=== PATIENT | male | born 1945 | race Caucasian/White ===

== ENCOUNTER 2021-06-01 10:20 | Outpatient (REF) | payer MEDICARE, SELFPAY ==
--- NOTE | ~2021-06-01 | XR_ITS ---
EXAMINATION: XR CHEST CLINICAL INFORMATION: Cough COMPARISON: Previous chest x-ray September 2017 TECHNIQUE: 2 views of the chest were obtained. FINDINGS: The cardiac and mediastinal contours are normal. There are several clustered small dense nodules in the right upper lobe probably representing small calcified granulomas that appear stable. The lungs are otherwise there is no pleural effusion or pneumothorax. There is a severe thoracolumbar scoliosis. There are degenerative changes of the spine. There is an old right proximal humerus fracture. XR/XR chest 2V IMPRESSION: No evidence for acute disease in the chest.
[2021-06-01 11:05] LABS: MANUAL DIFF FLAG NO
[2021-06-01 11:13] LABS: Basophils Absolute Auto 0.1 X10*3/uL (0.0-0.2); Basophils Percent Auto 0.7 % (0-2); Eosinophils Absolute Auto 0.5 X10*3/uL (0.0-0.4); Eosinophils Percent Auto 5.4 % (0-4); Hemoglobin 16.2 g/dl (14.0-18.0); Imm Gran Abs Auto 0.05 X10*3/uL (0.00-0.03); Imm Gran Pct Auto 0.6 % (0.0-0.4); Lymphocytes Absolute Auto 1.3 X10*3/uL (1.2-4.9); Lymphocytes Percent Auto 15.5 % (20-40); Mean Corpuscular HGB Conc 33.8 g/dl (31.0-36.0); Mean Corpuscular Hemoglobin 30.4 pg (27.0-33.0); Mean Corpuscular Volume 90.1 fL (80-98); Mean Platelet Volume 9.2 fL (9.4-12.4); Monocytes Absolute Auto 1.2 X10*3/uL (0.1-1.2); Monocytes Percent Auto 14.4 % (2-11); Neutrophils Absolute Auto 5.4 X10*3/uL (2.0-8.3); Neutrophils Percent Auto 63.4 % (45-73); Platelet Count 205 X10*3/uL (160-400); Red Blood Count 5.33 X10*6/uL (4.60-5.80); Red Cell Distribution Width 13.1 % (11.0-16.0); White Blood Count 8.5 X10*3/uL (4.8-10.8)
[2021-06-01 11:40] LABS: Anion Gap 13 (12-20); Blood Urea Nitrogen 15 mg/dL (9-16); Calcium 9.7 mg/dL (8.4-10.2); Carbon Dioxide 30 mmol/L (22-29); Chloride 101 mmol/L (96-108); Estimated Glomerular Filt Rate 53; Glucose Random 85 mg/dL (60-115); Potassium 3.8 mmol/L (3.3-5.1); Sodium 140 mmol/L (135-145)
== END 2021-06-01 10:21 | disposition home or self-care (01) ==
LOC: HO.LAB 10:20
PROVIDERS: PCP Internal Medicine; Visit Provider Internal Medicine
DX: Z00.00 Encounter for general adult medical examination without abnormal findings (principal); Z20.822 Contact with and (suspected) exposure to COVID-19; R09.89 Other specified symptoms and signs involving the circulatory and respiratory systems; R51.9 Headache, unspecified; R05 Cough
CPT/HCPCS: 71046; 80048; 85025; U0003; U0005

== ENCOUNTER 2021-12-31 09:37 | Outpatient (REF) | payer MEDICARE, SELFPAY ==
[2021-12-31 10:42] LABS: Anion Gap 10 (12-20); Blood Urea Nitrogen 18 mg/dL (9-16); Calcium 10.1 mg/dL (8.4-10.2); Carbon Dioxide 35 mmol/L (22-29); Chloride 101 mmol/L (96-108); Estimated Glomerular Filt Rate 59; Glucose Random 85 mg/dL (60-115); Potassium 4.2 mmol/L (3.3-5.1); Sodium 142 mmol/L (135-145)
== END 2021-12-31 09:38 | disposition home or self-care (01) ==
LOC: HO.LAB 09:37
PROVIDERS: PCP Internal Medicine; Visit Provider Urology
DX: R31.21 Asymptomatic microscopic hematuria (principal)
CPT/HCPCS: 36415; 80048

== ENCOUNTER 2022-03-18 10:27 | Outpatient (REF) | payer MEDICARE, SELFPAY ==
--- NOTE | ~2022-03-18 | XR_ITS ---
EXAMINATION: XR LUMBOSACRAL SPINE CLINICAL INFORMATION: Low back pain COMPARISON: Previous x-ray most recent November 2013 TECHNIQUE: Three views of the lumbosacral spine. FINDINGS: There is curvature of the lumbar spine to the right. Bone alignment is otherwise normal. No fracture or dislocation is seen. Disc spaces are normal. There is spondylosis at L1-L2 and L3-L4. There is multilevel facet arthritis. There is evidence of atherosclerotic disease. XR/XR lumbar spine 2-3V IMPRESSION: Scoliosis and degenerative changes.
== END 2022-03-18 10:28 | disposition home or self-care (01) ==
LOC: HO.XRAY 10:27
PROVIDERS: PCP Internal Medicine; Visit Provider Family Medicine
DX: M54.50 Low back pain, unspecified (principal)
CPT/HCPCS: 72100

== ENCOUNTER 2022-07-24 07:46 | Outpatient (REF) | payer MEDICARE, SELFPAY ==
[2022-07-24 07:59] LABS: MANUAL DIFF FLAG NO
[2022-07-24 08:27] LABS: Basophils Percent Auto 0.5 % (0-2); Eosinophils Absolute Auto 0.6 X10*3/uL (0.0-0.4); Eosinophils Percent Auto 7.1 % (0-4); Hematocrit 45.6 % (42.0-52.0); Hemoglobin 15.5 g/dl (14.0-18.0); Imm Gran Abs Auto 0.05 X10*3/uL (0.00-0.03); Imm Gran Pct Auto 0.6 % (0.0-0.4); Lymphocytes Absolute Auto 1.4 X10*3/uL (1.2-4.9); Lymphocytes Percent Auto 17.4 % (20-40); Mean Corpuscular Hemoglobin 30.5 pg (27.0-33.0); Mean Corpuscular Volume 89.6 fL (80.0-98.0); Mean Platelet Volume 9.2 fL (9.4-12.4); Monocytes Absolute Auto 0.9 X10*3/uL (0.1-1.2); Monocytes Percent Auto 12.1 % (2-11); Neutrophils Absolute Auto 4.8 x10*3/uL (2.0-8.3); Neutrophils Percent Auto 62.3 % (45-73); Platelet Count 228 X10*3/uL (160-400); Red Blood Count 5.09 X10*6/uL (4.60-5.80); Red Cell Distribution Width 13.1 % (11.0-16.0); White Blood Count 7.8 X10*3/uL (4.8-10.8)
[2022-07-24 09:11] LABS: Alanine Aminotransferase 32 U/L (0-40); Albumin Level 4.4 g/dL (3.5-5.0); Alkaline Phosphatase 97 U/L (39-117); Anion Gap 13 (12-20); Aspartate Amino Transferase 31 U/L (5-37); Bilirubin Total 1.3 mg/dL (0.0-1.0); Blood Urea Nitrogen 13 mg/dL (9-16); Calcium 9.2 mg/dL (8.4-10.2); Carbon Dioxide 31 mmol/L (22-29); Chloride 99 mmol/L (96-108); Cholesterol 140 mg/dL; Estimated Glomerular Filt Rate 59; Glucose Fasting 92 mg/dL (60-99); HDL Cholesterol 50 mg/dL; LDL Cholesterol Calculated 71 mg/dl; Potassium 3.4 mmol/L (3.3-5.1); Sodium 140 mmol/L (135-145); Total Protein 7.1 g/dL (6.5-8.0); Triglycerides 95 mg/dL
== END 2022-07-24 07:47 | disposition home or self-care (01) ==
LOC: HO.LAB 07:46
PROVIDERS: PCP Internal Medicine; Visit Provider Internal Medicine
DX: Z00.00 Encounter for general adult medical examination without abnormal findings (principal); Z13.0 Encounter for screening for diseases of the blood and blood-forming organs and certain disorders involving the immune mechanism
CPT/HCPCS: 36415; 80053; 80061; 84443; 85025

== ENCOUNTER 2022-11-19 12:07 | Outpatient (REF) | payer MEDICARE, SELFPAY ==
--- NOTE | ~2022-11-19 | XR_ITS ---
EXAMINATION: XR CHEST CLINICAL INFORMATION: Chest pain COMPARISON: 06/01/2021 TECHNIQUE: 2 views of the chest were obtained. FINDINGS: Similar appearance of the chest. Unchanged calcifications in the right upper chest likely calcified granulomata. There is blunting of the right lateral costophrenic angle. No pleural effusion or pneumothorax. Normal pulmonary vascularity. No focal consolidation or mass. S-shaped thoracolumbar rotoscoliosis. Healed right proximal humeral fracture. XR/XR chest 2V IMPRESSION: No acute pulmonary disease. No significant change from prior study.
[2022-11-19 12:20] LABS: MANUAL DIFF FLAG NO
[2022-11-19 13:28] LABS: Basophils Absolute Auto 0.1 X10*3/uL (0.0-0.2); Basophils Percent Auto 0.7 % (0-2); Eosinophils Absolute Auto 0.4 X10*3/uL (0.0-0.4); Eosinophils Percent Auto 3.6 % (0-4); Hematocrit 47.5 % (42.0-52.0); Imm Gran Abs Auto 0.04 X10*3/uL (0.00-0.03); Imm Gran Pct Auto 0.4 % (0.0-0.4); Lymphocytes Absolute Auto 1.3 X10*3/uL (1.2-4.9); Lymphocytes Percent Auto 13.8 % (20-40); Mean Corpuscular HGB Conc 33.7 g/dl (31.0-36.0); Mean Corpuscular Hemoglobin 30.7 pg (27.0-33.0); Mean Corpuscular Volume 91.2 fL (80.0-98.0); Mean Platelet Volume 9.9 fL (9.4-12.4); Monocytes Absolute Auto 1.1 X10*3/uL (0.1-1.2); Monocytes Percent Auto 11.2 % (2-11); Neutrophils Absolute Auto 6.8 x10*3/uL (2.0-8.3); Neutrophils Percent Auto 70.3 % (45-73); Platelet Count 219 X10*3/uL (160-400); Red Blood Count 5.21 X10*6/uL (4.60-5.80); Red Cell Distribution Width 13.2 % (11.0-16.0); White Blood Count 9.7 X10*3/uL (4.8-10.8)
[2022-11-19 14:55] LABS: Anion Gap 11 (12-20); Blood Urea Nitrogen 17 mg/dL (9-16); Calcium 9.5 mg/dL (8.4-10.2); Carbon Dioxide 33 mmol/L (22-29); Chloride 99 mmol/L (96-108); Cholesterol 136 mg/dL; Estimated Glomerular Filt Rate > 60; Glucose Random 82 mg/dL (60-115); HDL Cholesterol 53 mg/dL; LDL Cholesterol Calculated 62 mg/dl; Potassium 3.7 mmol/L (3.3-5.1); Sodium 139 mmol/L (135-145); Triglycerides 107 mg/dL
== END 2022-11-19 12:08 | disposition home or self-care (01) ==
LOC: HO.LAB 12:07
PROVIDERS: PCP Internal Medicine; Visit Provider Internal Medicine
DX: M54.50 Low back pain, unspecified (principal); D64.9 Anemia, unspecified; R10.9 Unspecified abdominal pain; E78.5 Hyperlipidemia, unspecified; R07.9 Chest pain, unspecified
CPT/HCPCS: 36415; 71046; 80048; 80061; 85025

== ENCOUNTER 2022-12-09 09:32 | Outpatient (REF) | payer MEDICARE, SELFPAY ==
--- NOTE | ~2022-12-09 | US_ITS ---
EXAMINATION: US ABDOMEN COMPLETE CLINICAL INFORMATION: Abdominal pain. COMPARISON: None TECHNIQUE: Real-time imaging of the abdominal viscera. FINDINGS: PANCREAS: Normal. ABDOMINAL AORTA: The proximal, mid, and distal segments are normal in caliber. Some mild calcific plaque is present INFERIOR VENA CAVA: Visualized portions are normal. LIVER: Normal. The liver is normal in size. The liver contour is normal. Parenchymal echogenicity is normal. No focal hepatic lesion. There is no intrahepatic biliary duct dilatation seen. GALLBLADDER: Normal. The gallbladder is physiologically distended without evidence of stones, sludge, polyps, wall thickening or pericholecystic fluid. COMMON BILE DUCT: Normal in caliber measuring 0.5 cm in diameter. RIGHT KIDNEY: Normal. No hydronephrosis. No renal calculi or focal parenchymal lesions. The kidney measures 9.3 cm in maximum dimension. LEFT KIDNEY: Normal. No hydronephrosis. No renal calculi or focal parenchymal lesions. The kidney measures 9.4 cm in maximum dimension. SPLEEN: Normal. The spleen measures 10.1 cm in maximum dimension. FREE FLUID: None. US/US abdomen complete IMPRESSION: Negative exam. A cause for the patient's abdominal pain has not been found.
== END 2022-12-09 09:33 | disposition home or self-care (01) ==
LOC: HO.US 09:32
PROVIDERS: Visit Provider Internal Medicine
DX: R10.9 Unspecified abdominal pain (principal)
CPT/HCPCS: 76700

== ENCOUNTER 2023-06-04 09:31 | Outpatient (AMB) | payer MEDICARE, SELFPAY ==
[2023-06-04 09:34] VITALS: BP 124/80; PULSE 86; O2SAT 96; BMI 27.0
--- NOTE | 2023-06-04 09:34 | A.OFFPC_ITS ---
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 Accompanied by: Self / Same As Patient Allergies Penicillins Allergy (Mild, Verified 06/04/23 09:34) RASH yeast, dried [yeast] Allergy (Mild, Verified 06/04/23 09:34) CHEST CONGESTION amoxicillin [AMOXICILLIN] Allergy (Unknown, Verified 06/04/23 09:34) RASH clindamycin [CLINDAMYCIN] Allergy (Unknown, Verified 06/04/23 09:34) RASH,DIARRHEA Clindamycin HCl Allergy (Unknown, Verified 06/04/23 09:34) rash, diarrhea Medication List - Last Reconciled 06/04/23 by Blade Rm MD albuterol sulfate 90 mcg/actuation (ProAir HFA) 2 puffs PO Q6H PRN allopurinol 300 mg PO DAILY atorvastatin 40 mg PO DAILY clopidogrel 75 mg PO DAILY cyclobenzaprine 10 mg PO TID PRN 10 days fluticasone propionate 50 mcg/actuation (Allergy Relief (fluticasone)) 2 sprays intranasal DAILY hydrochlorothiazide 25 mg PO DAILY indomethacin 25 mg PO QID sildenafil 0 mg PO Tobacco use date assessed: 06/04/23 Fall risk assessment: No Falls in past year Last assessed Fall Risk: 06/04/23 Dental Screening Dental Screen Date: 06/04/23 Did you have a dental visit in the last 12 months?: Yes Did you have a dental problem in the last 6 months where you did not have access to dental care?: No Was dental information given to patient?: Patient has dentist HPI 4 month f/u HPI Details HTN and gout on Rx; doing well [facility] Medical History (Updated 06/04/23 @ 10:08 by Blade Rm MD) Cough Surgical History History of colonoscopy Family History Mother No problems noted. Father No problems noted. Social History Housing: House Patient Tobacco Use Status: Never used Tobacco e-Cigarette/Vaping Use: Never Used Second Hand Smoke Exposure: No service: No Current occupational status: retired Cognitive needs: No Hearing needs: No Vision needs: No Questionnaire PHQ-9 Over the last 2 weeks, how often have you been bothered by any of the following problems? 1. Little interest or pleasure in doing things: not at all 2. Feeling down, depressed, or hopeless: not at all 3. Trouble falling or staying asleep, or sleeping too much: not at all 4. Feeling tired or having little energy: not at all 5. Poor appetite or overeating: not at all 6. Feeling bad about yourself - or that you are a failure or have let yourself or your family down: not at all 7. Trouble concentrating on things, such as reading the newspaper or watching television: not at all 8. Moving or speaking so slowly that other people could have noticed. Or the opposite - being so fidgety or restless that you have been moving around a lot more than usual: not at all 9. Thoughts that you would be better off or of hurting yourself in some way: not at all Total score: 0 Depression Screening Interpretation: Negative Source: Developed by Drs. Xu Patrick, Jessica Portillo, Krzysztof chavarria nd colleagues, with an educational maddi from [employer]. Thrive Questionnaire Date Thrive assessed: 06/04/23 I am a: Patient What is your living situation today?: I have a steady place to live Within the past 12 months, did the food you bought not last and you didn't have the money to get more?: Never true Within the past 12 months, did you worry whether your food would run out before you got money to buy more?: Never true Do you have trouble paying for medicines?: No Do you have trouble getting transportation to medical appointments?: No Do you have trouble paying your heating and electricity bill?: No Do you have trouble taking care of your child, family member or friend?: No Do you have trouble with day-to-day activities such as bathing, preparing meals, shopping, managing finances, etc.?: No Are you currently unemployed and looking for a job?: No Are you interested in more education?: No Please select the resources that you would like help with: None Currently or been in a relationship where the following occur: no concerns reported AUDIT C Alcohol Use Questionnaire (AUDIT-C) 1. How often do you have a drink containing alcohol?: Never Total Score: 0 Score Reviewed/Action Taken: Yes ZUNILDA-7 AMB Questionnaire ZUNILDA-7 Date ZUNILDA - 7 assessed: 06/04/23 Feeling nervous, anxious, or on edge: 0 = Not at all Not being able to stop or control worryin = Not at all Worrying too much about different things: 0 = Not at all Trouble relaxin = Not at all Being so restless that it is hard to sit still: 0 = Not at all Becoming easily annoyed or irritable: 0 = Not at all Feeling afraid as if something awful might happen: 0 = Not at all Total ZUNILDA-7 score (0-4 normal; 5-9 mild; 10-14 moderate; 15-21 severe): 0 Source: Developed by Drs. Xu Patrick, Jessica Portillo, Krzysztof Garcia and colleagues, with an educational maddi from [employer]. ZUNILDA-7 Assessment Billing ZUNILDA-7 Assessment Tool: ZUNILDA-7 Assessment 36620 Review of Systems Const Denies chills, Denies headache(s) and Denies weight loss ENT Denies headache(s) Card Denies chest pain, Denies syncope, Denies irregular heart rhythm and Denies dyspnea Resp Denies chest congestion, Denies cough and Denies dyspnea GI Denies abdominal pain, Denies change in stool character, Denies nausea and Denies vomiting Musc Denies deformity and Denies joint swelling Neuro Denies syncope and Denies headache(s) Physical exam (Primary Care) Vital Signs: Last Vital Signs Pulse 86 06/04/23 09:34 BP 124/80 06/04/23 09:34 Pulse Ox 96 06/04/23 09:34 Oxygen Delivery Method Room Air 06/04/23 09:34 BMI result Body Mass Index 27.0 Tobacco/Smoking Status: Tobacco use Status Tobacco use date assessed 06/04/23 06/04/23 09:39 Patient Tobacco Use Status Never used Tobacco 06/04/23 09:39 e-Cigarette/Vaping Use Never Used 06/04/23 09:39 PHQ-9: PHQ-9 Score PHQ-9: Total score 0 06/04/23 09:39 Depression Screening Interpretation: Negative Thrive Assessment: Date of Thrive Assessment Date Thrive assessed 06/04/23 06/04/23 09:39 Currently or been in a relationship where the following occur: no concerns reported Const General: comfortable, no acute distress and alert Neck Neck: Yes no lymphadenopathy Thyroid: Thyroid normal Resp Effort & Inspection: normal respiratory effort Auscultation: clear to auscultation bilaterally Percussion: percussion normal Cardio Jugular venous distension: no JVD Palpation: normal PMI Rate: regular rate Rhythm: regular rhythm Heart sounds: S1 normal heart sound present and S2 normal heart sound present GI Inspection: Yes normal to inspection Palpation (GI): No hepatosplenomegaly present Skin General skin exam: no rashes or lesions noted Extrem General: Yes no clubbing, cyanosis or edema Assessment and Plan Assessment & Plan (1) Hypertension: Code(s): I10 - Essential (primary) hypertension Plan: stable; same rx (2) Gout: Code(s): M10.9 - Gout, unspecified Plan: stable; same rx Coding Level of Care Code Est Pt Level 4 (93907) Diagnoses Hypertension I10 Gout M10.9 Additional Codes ZUNILDA-7 Assessment Billing - ZUNILDA-7 Assessment Tool: ZUNILDA-7 Assessment 29182 ([id number])
== END 2023-06-04 09:57 | disposition home or self-care (01) ==
PROVIDERS: PCP Internal Medicine; Visit Provider Internal Medicine
DX: I10 Essential (primary) hypertension (principal); M10.9 Gout, unspecified
CPT/HCPCS: 99214

== ENCOUNTER 2023-10-15 10:42 | Outpatient (AMB) | payer MEDICARE, SELFPAY ==
[2023-10-15 10:50] VITALS: BP 132/74; PULSE 62; O2SAT 98; BMI 27.1
--- NOTE | 2023-10-15 10:50 | AM.OFFVISMDC ---
Intake Vital Signs 10/15/23 10:50 Height 5 ft 6 in Weight 168 lb BMI 27.1 BP 132/74 Blood Pressure Location Lt brachial Position Sitting Pulse 62 Pulse Source Pulse Oximeter Pulse Oximetry (%) 98 Oxygen Delivery Method Room Air Intake Visit Reasons: HALIE [id number] Entry Specialist Required: No Accompanied by: Self / Same As Patient Allergies Penicillins Allergy (Mild, Verified 06/04/23 09:34) RASH yeast, dried [yeast] Allergy (Mild, Verified 06/04/23 09:34) CHEST CONGESTION amoxicillin [AMOXICILLIN] Allergy (Unknown, Verified 06/04/23 09:34) RASH clindamycin [CLINDAMYCIN] Allergy (Unknown, Verified 06/04/23 09:34) RASH,DIARRHEA Clindamycin HCl Allergy (Unknown, Verified 06/04/23 09:34) rash, diarrhea PFSH Medical History Cough Surgical History History of colonoscopy Family History Mother No problems noted. Father No problems noted. Social History Housing: House Patient Tobacco Use Status: Never used Tobacco e-Cigarette/Vaping Use: Never Used Second Hand Smoke Exposure: No service: No Current occupational status: retired Cognitive needs: No Hearing needs: No Vision needs: No Questionnaire Medicare Wellness Checkup [age] What gender do you identify with?: male During the past 4 weeks, how much have you been bothered by emotional problems such as feeling anxious, depressed, irritable, sad or downhearted, and blue?: not at all During the past 4 weeks, has your physical & emotional health limited your social activities with family, friends, neighbors, or groups?: not at all During the past 4 weeks, how much bodily pain have you generally had?: moderate pain (back) During the past 4 weeks, was someone available to help you if you needed & wanted help?: yes, as much as I wanted During the past 4 weeks, what was the hardest physical activity you could do for at least 2 minutes?: heavy Can you get to places out of walking distance without help? (For eg., can you travel alone on buses, taxis or drive your car?): Yes Can you go shopping for groceries or clothes without someone's help?: Yes Can you do your housework without help?: Yes Because of any health problems, do you need the help of another person with your personal care needs such as eating, bathing, dressing or getting around the house?: No Can you handle your own money without help?: Yes During the past 4 weeks, how would you rate your health in general?: very good During the past 4 weeks how have things been going for you?: pretty well Are you having difficulties driving your car?: no Do you always fasten your seat belt when you are in a car?: yes, usually During past 4 weeks, have you been bothered by the following: never: Falling or dizzy when standing up, Sexual problems?, Trouble eating well?, Teeth or denture problems?, Problems using the telephone? and Tiredness or fatigue? Have you fallen 2 or more times in the past year?: No Are you afraid of falling?: No Are you a smoker?: no During the past 4 weeks, how many drinks of wine, beer, or other alcoholic beverages did you have?: 2-5 drinks per week Do you exercise for about 20 minutes 3 or more times a week?: yes, most of the time Have you been given information to help with the following?: no: Hazards in your house that might hurt you? and no: Keeping track of your medications? How often do you have trouble taking medicines the way you have been told to take them?: I always take medicine as prescribed How confident are you that you can control & manage most of your health problems?: very confident What is your race?: White Mini Mental State Exam (MMSE) Orientation What is the (year) (season) (date) (day) (month)?: year, season, date, day and month Where are we (state) (county) (town or city) (hospital) (floor)?: state, county, town or city, hospital/clinic and floor Registration Name of 3 unrelated objects clearly and slowly, then ask patient to repeat all 3 of them. (1st repeat determines score. Make sure they can repeat all three): object 1, object 2 and object 3 Recall Ask patient to repeat the 3 items from question #3.: object 1, object 2 and object 3 Score Score: 16 Activity of Daily Living Bathing - sponge bath, tub bath or shower: receives no assistance (gets in/out by self, if usual bathing means Dressing - getting clothes from closets & drawers, including inner/outer garments & fasteners.: gets clothes & gets completely dressed without help Toileting - going to the 'toilet room' for urine/bowel elimination & cleaning self/arranging clothes: goes to toilet room, cleans self, arranges clothes without help Transfer: moves in & out of bed and chair without help (may use support object) Continence: controls urination/bowel movements completely by self Feeding: feeds self without help Total Score: 0 Information obtained from: patient Using telephone: independent Traveling: independent Shopping: independent Preparing meals: independent Housework: independent Taking medicine: independent Managing money: independent PHQ-9 Over the last 2 weeks, how often have you been bothered by any of the following problems? 1. Little interest or pleasure in doing things: not at all 2. Feeling down, depressed, or hopeless: not at all 3. Trouble falling or staying asleep, or sleeping too much: not at all 4. Feeling tired or having little energy: several days 5. Poor appetite or overeating: not at all 6. Feeling bad about yourself - or that you are a failure or have let yourself or your family down: not at all 7. Trouble concentrating on things, such as reading the newspaper or watching television: not at all 8. Moving or speaking so slowly that other people could have noticed. Or the opposite - being so fidgety or restless that you have been moving around a lot more than usual: not at all 9. Thoughts that you would be better off or of hurting yourself in some way: not at all Total score: 1 Depression Screening Interpretation: Negative Depression Screening Done: Yes 35389 - PHQ-9 Billing: Yes Source: Developed by Drs. Xu Patrick, Jessica Portillo, Krzysztof Garcia and colleagues, with an educational maddi from [employer]. Review of Systems Const Denies chills, Denies fatigue, Denies headache(s) and Denies weight loss Eyes Denies change in vision, Denies diplopia and Denies eye pain ENT Reports Normal hearing present, Denies vertigo, Denies dizziness, Denies headache(s) and Denies nasal discharge Card Denies chest pain, Denies rapid heart rate and Denies dyspnea on exertion Resp Denies chest congestion, Denies cough, Denies pain with cough and Denies dyspnea on exertion GI Denies abdominal pain, Denies hematochezia and Denies change in bowel habits Musc Denies myalgias, Denies arthralgias and Denies joint swelling Skin/Breast Denies lesions and Denies unusual bruising Neuro Reports Normal hearing present, Denies vertigo, Denies dizziness, Denies headache(s) and Denies focal weakness Endo Denies fatigue Physical Exam Vital Signs: Last Vital Signs Pulse 62 10/15/23 10:50 BP 132/74 10/15/23 10:50 Pulse Ox 98 10/15/23 10:50 Oxygen Delivery Method Room Air 10/15/23 10:50 BMI result Body Mass Index 27.1 Neuro Cranial nerves: Yes Normal hearing present Assessment & Plan Assessment & Plan (1) Encounter for subsequent annual wellness visit (AWV) in Medicare patient: Code(s): Z00.00 - Encounter for general adult medical examination without abnormal findings Plan: rhomberg and whisper tests nl (2) Hypertension: Code(s): I10 - Essential (primary) hypertension Plan: stable; same rx (3) Hyperlipidemia: Code(s): E78.5 - Hyperlipidemia, unspecified Plan: stable; same rx Quality Reporting (2019) Depression/Bipolar (159/160/161/177) PHQ-9: Total score: 1 Coding Level of Care Code Medicare Subsequent (G0439) Diagnoses Encounter for subsequent annual wellness visit (AWV) in Medicare patient Z00.00 Hypertension I10 Hyperlipidemia E78.5 CPT Codes Advance Care Planning - Advance Care Planning discussion: On file, no changes ([id number]) Advance Care Planning Advance Care Planning discussion: On file, no changes Forms completed: Health Care Proxy
== END 2023-10-15 11:27 | disposition home or self-care (01) ==
PROVIDERS: PCP Internal Medicine; Visit Provider Internal Medicine
DX: Z00.00 Encounter for general adult medical examination without abnormal findings (principal); I10 Essential (primary) hypertension; E78.5 Hyperlipidemia, unspecified
CPT/HCPCS: 1123F; G0439

== ENCOUNTER 2024-10-19 13:04 | Outpatient (AMB) | payer MEDICARE, SELFPAY ==
[2024-10-19 13:07] VITALS: BP 122/76; PULSE 71; O2SAT 96; BMI 27.0
--- NOTE | 2024-10-19 13:07 | A.OFFVIS_ITS ---
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 Stations Required: No Accompanied by: Self / Same As Patient Allergies Penicillins Allergy (Mild, Verified 10/19/24 13:08) RASH yeast, dried [yeast] Allergy (Mild, Verified 10/19/24 13:08) CHEST CONGESTION amoxicillin [AMOXICILLIN] Allergy (Unknown, Verified 10/19/24 13:08) RASH clindamycin [CLINDAMYCIN] Allergy (Unknown, Verified 10/19/24 13:08) RASH,DIARRHEA Clindamycin HCl Allergy (Unknown, Verified 10/19/24 13:08) rash, diarrhea Medication List - Last Reconciled 10/20/24 by Blade Rm MD albuterol sulfate 90 mcg/actuation (ProAir HFA) 2 puffs PO Q6H PRN allopurinol 300 mg PO DAILY atorvastatin 40 mg PO DAILY clopidogrel 75 mg PO DAILY cyclobenzaprine 10 mg PO TID PRN 10 days fluticasone propionate 50 mcg/actuation (Allergy Relief (fluticasone)) 2 sprays intranasal DAILY hydrochlorothiazide 25 mg PO DAILY indomethacin 25 mg PO QID sildenafil 0 mg PO Do you need a note to return to daycare/school/sports/work: No HPI [facility] HPI Details hyperlipidemia and hypertension; doing well PFSH Medical History Cough Surgical History History of colonoscopy Family History Mother No problems noted. Father No problems noted. Social History Housing: House Patient Tobacco Use Status: Never used Tobacco e-Cigarette/Vaping Use: Never Used Second Hand Smoke Exposure: No service: No Current occupational status: retired Cognitive needs: No Hearing needs: No Vision needs: No Questionnaire Medicare Wellness Checkup [age] What gender do you identify with?: male During the past 4 weeks, how much have you been bothered by emotional problems such as feeling anxious, depressed, irritable, sad or downhearted, and blue?: not at all During the past 4 weeks, has your physical & emotional health limited your social activities with family, friends, neighbors, or groups?: not at all During the past 4 weeks, how much bodily pain have you generally had?: mild pain During the past 4 weeks, was someone available to help you if you needed & wanted help?: yes, as much as I wanted During the past 4 weeks, what was the hardest physical activity you could do for at least 2 minutes?: heavy Can you get to places out of walking distance without help? (For eg., can you travel alone on buses, taxis or drive your car?): Yes Can you go shopping for groceries or clothes without someone's help?: Yes Can you prepare your own meals?: Yes Can you do your housework without help?: Yes Because of any health problems, do you need the help of another person with your personal care needs such as eating, bathing, dressing or getting around the house?: No Can you handle your own money without help?: Yes During the past 4 weeks, how would you rate your health in general?: good During the past 4 weeks how have things been going for you?: pretty well Are you having difficulties driving your car?: no Do you always fasten your seat belt when you are in a car?: yes, usually During past 4 weeks, have you been bothered by the following: never: Falling or dizzy when standing up, Sexual problems?, Trouble eating well? and Problems using the telephone? and seldom: Teeth or denture problems? and Tiredness or fatigue? Have you fallen 2 or more times in the past year?: No Are you afraid of falling?: No Are you a smoker?: no During the past 4 weeks, how many drinks of wine, beer, or other alcoholic beverages did you have?: 2-5 drinks per week Do you exercise for about 20 minutes 3 or more times a week?: no, I usually do not exercise this much Have you been given information to help with the following?: no: Hazards in your house that might hurt you? and no: Keeping track of your medications? How often do you have trouble taking medicines the way you have been told to take them?: I always take medicine as prescribed How confident are you that you can control & manage most of your health problems?: very confident What is your race?: White Mini Mental State Exam (MMSE) Orientation What is the (year) (season) (date) (day) (month)?: year, season, date, day and month Where are we (state) (county) (town or city) (hospital) (floor)?: state, county, town or city, hospital/clinic and floor Registration Name of 3 unrelated objects clearly and slowly, then ask patient to repeat all 3 of them. (1st repeat determines score. Make sure they can repeat all three): object 1, object 2 and object 3 Score Score: 13 Activity of Daily Living Bathing - sponge bath, tub bath or shower: receives no assistance (gets in/out by self, if usual bathing means Dressing - getting clothes from closets & drawers, including inner/outer garments & fasteners.: gets clothes & gets completely dressed without help Toileting - going to the 'toilet room' for urine/bowel elimination & cleaning self/arranging clothes: goes to toilet room, cleans self, arranges clothes without help Transfer: moves in & out of bed and chair without help (may use support object) Continence: controls urination/bowel movements completely by self Feeding: feeds self without help Total Score: 0 Information obtained from: patient Using telephone: independent Traveling: independent Shopping: independent Preparing meals: independent Housework: independent Taking medicine: independent Managing money: independent PHQ-9 Over the last 2 weeks, how often have you been bothered by any of the following problems? 1. Little interest or pleasure in doing things: not at all 2. Feeling down, depressed, or hopeless: not at all 3. Trouble falling or staying asleep, or sleeping too much: not at all 4. Feeling tired or having little energy: several days 5. Poor appetite or overeating: not at all 6. Feeling bad about yourself - or that you are a failure or have let yourself or your family down: not at all 7. Trouble concentrating on things, such as reading the newspaper or watching television: not at all 8. Moving or speaking so slowly that other people could have noticed. Or the opposite - being so fidgety or restless that you have been moving around a lot more than usual: not at all 9. Thoughts that you would be better off or of hurting yourself in some way: not at all Total score: 1 Depression Screening Interpretation: Negative Depression Screening Done: Yes 13207 - PHQ-9 Billing: Yes Source: Developed by Drs. Xu Patrick, Jessica Portillo, Krzysztof Garcia and colleagues, with an educational maddi from [employer]. PHQ-2/PHQ-9 PHQ-2 Over the last 2 weeks, how often have you been bothered by any of the following problems? 1. Little interest or pleasure in doing things: not at all 2. Feeling down, depressed, or hopeless: not at all Total score: 0 If score is 3 or greater, continue 3. Trouble falling or staying asleep, or sleeping too much: not at all 4. Feeling tired or having little energy: several days 5. Poor appetite or overeating: not at all 6. Feeling bad about yourself - or that you are a failure or have let yourself or your family down: not at all 7. Trouble concentrating on things, such as reading the newspaper or watching television: not at all 8. Moving or speaking so slowly that other people could have noticed. Or the opposite - being so fidgety or restless that you have been moving around a lot more than usual: not at all 9. Thoughts that you would be better off or of hurting yourself in some way: not at all Total score: 1 0-4 None-Minimal, 5-9 Mild, 10-14 Moderate, 15-19 Moderately Severe, 20-27 Severe Source: Developed by Drs. Xu Patrick, Jessica Portillo, Krzysztof Garcia and colleagues, with an educational maddi from [employer]. Thrive Questionnaire Date Thrive assessed: 10/19/24 I am a: Patient What is your living situation today?: I have a steady place to live Within the past 12 months, did the food you bought not last and you didn't have the money to get more?: Never true Within the past 12 months, did you worry whether your food would run out before you got money to buy more?: Never true Do you have trouble paying for medicines?: No Do you have trouble getting transportation to medical appointments?: No Do you have trouble paying your heating and electricity bill?: No Do you have trouble taking care of your child, family member or friend?: No Do you have trouble with day-to-day activities such as bathing, preparing meals, shopping, managing finances, etc.?: No Are you currently unemployed and looking for a job?: No Are you interested in more education?: No Please select the resources that you would like help with: None Currently or been in a relationship where the following occur: No concerns reported THRIVE Score: 0 ZUNILDA-7 AMB Questionnaire ZUNILDA-7 Date ZUNILDA - 7 assessed: 10/19/24 Feeling nervous, anxious, or on edge: 0 = Not at all Not being able to stop or control worryin = Not at all Worrying too much about different things: 0 = Not at all Trouble relaxin = Not at all Being so restless that it is hard to sit still: 0 = Not at all Becoming easily annoyed or irritable: 0 = Not at all Feeling afraid as if something awful might happen: 0 = Not at all Total ZUNILDA-7 score (0-4 normal; 5-9 mild; 10-14 moderate; 15-21 severe): 0 Source: Developed by Drs. Xu Patrick, Jessica Portillo, Krzysztof Garcia and colleagues, with an educational maddi from [employer]. ZUNILDA-7 Assessment Billing ZUNILDA-7 Assessment Tool: ZUNILDA-7 Assessment 53944 Review of Systems Const Denies chills, Denies fatigue, Denies headache(s) and Denies weight loss Eyes Denies change in vision, Denies diplopia and Denies eye pain ENT Reports Normal hearing present, Denies vertigo, Denies dizziness, Denies headache(s) and Denies nasal discharge Card Denies chest pain, Denies rapid heart rate and Denies dyspnea on exertion Resp Denies chest congestion, Denies cough, Denies pain with cough and Denies dyspnea on exertion GI Denies abdominal pain, Denies hematochezia and Denies change in bowel habits Musc Denies myalgias, Denies arthralgias and Denies joint swelling Skin/Breast Denies lesions and Denies unusual bruising Neuro Reports Normal hearing present, Denies vertigo, Denies dizziness, Denies headache(s) and Denies focal weakness Endo Denies fatigue Physical Exam Vital Signs: Last Vital Signs Pulse 71 10/19/24 13:07 BP 122/76 10/19/24 13:07 Pulse Ox 96 10/19/24 13:07 Oxygen Delivery Method Room Air 10/19/24 13:07 BMI result Body Mass Index 27.0 Neuro Cranial nerves: Yes Normal hearing present Assessment & Plan Assessment & Plan (1) Encounter for subsequent annual wellness visit (AWV) in Medicare patient: Code(s): Z00.00 - Encounter for general adult medical examination without abnormal findings Plan: rhomberg and whisper tests normal; all forms given to patient (2) Hyperlipidemia: Code(s): E78.5 - Hyperlipidemia, unspecified Plan: stable; same rx (3) Hypertension: Code(s): I10 - Essential (primary) hypertension Plan: stable; same rx Orders: Orders Prostate Specific Antigen Scr 10/19/24 Z00.00 - Encounter for general adult medical examination without abnormal findings Lipid Panel 10/19/24 Z13.220 - Encounter for screening for lipoid disorders Thyroid Stimulating Hormone 10/19/24 Z13.29 - Encounter for screening for other suspected endocrine disorder Complete Blood Count Auto Diff 10/19/24 Z13.0 - Encounter for screening for diseases of the blood and blood-forming organs and certain disorders involving the immune mechanism Comprehensive [place]. Panel Fast 10/19/24 Z13.9 - Encounter for screening, unspecified Quality Reporting (2019) Depression/Bipolar (159/160/161/177) PHQ-9: Total score: 1 Coding Level of Care Code Medicare Subsequent (G0439) Diagnoses Encounter for subsequent annual wellness visit (AWV) in Medicare patient Z00.00 Hyperlipidemia E78.5 Hypertension I10 CPT Codes Advance Care Planning - Advance Care Planning discussion: On file, no changes ([id number]) Additional Codes ZUNILDA-7 Assessment Billing - ZUNILDA-7 Assessment Tool: ZUNILDA-7 Assessment 71145 ([id number]) PHQ-9 - 26574 - PHQ-9 Billing: Yes ([id number]) Advance Care Planning Advance Care Planning discussion: On file, no changes Forms completed: Health Care Proxy
== END 2024-10-19 13:42 | disposition home or self-care (01) ==
PROVIDERS: PCP Internal Medicine; Visit Provider Internal Medicine
DX: Z00.00 Encounter for general adult medical examination without abnormal findings (principal); E78.5 Hyperlipidemia, unspecified; I10 Essential (primary) hypertension

== ENCOUNTER → 2024-10-19 13:04 | Outpatient (BNVA) | payer MEDICARE, SELFPAY | PROVIDERS: PCP Internal Medicine; Visit Provider Internal Medicine | DX: Z00.00 Encounter for general adult medical examination without abnormal findings (principal); E78.5 Hyperlipidemia, unspecified; I10 Essential (primary) hypertension | CPT/HCPCS: 96127 ==

== ENCOUNTER 2025-01-04 06:57 | Outpatient (REF) | payer MEDICARE, SELFPAY ==
[2025-01-04 07:05] LABS: MANUAL DIFF FLAG NO
[2025-01-04 07:47] LABS: Basophils Absolute Auto 0.1 X10*3/uL (0.0-0.2); Basophils Percent Auto 0.7 % (0-2); Eosinophils Absolute Auto 0.6 X10*3/uL (0.0-0.4); Eosinophils Percent Auto 7.2 % (0-4); Hematocrit 46.4 % (42.0-52.0); Hemoglobin 15.5 g/dl (14.0-18.0); Imm Gran Abs Auto 0.03 X10*3/uL (0.00-0.03); Imm Gran Pct Auto 0.4 % (0.0-0.4); Lymphocytes Absolute Auto 1.6 X10*3/uL (1.2-4.9); Lymphocytes Percent Auto 19.8 % (20-40); Mean Corpuscular HGB Conc 33.4 g/dl (31.0-36.0); Mean Corpuscular Hemoglobin 30.2 pg (27.0-33.0); Mean Corpuscular Volume 90.4 fL (80.0-98.0); Mean Platelet Volume 10.2 fL (9.4-12.4); Monocytes Percent Auto 12.5 % (2-11); Neutrophils Absolute Auto 4.8 x10*3/uL (2.0-8.3); Neutrophils Percent Auto 59.4 % (45-73); Platelet Count 179 X10*3/uL (160-400); Red Blood Count 5.13 X10*6/uL (4.60-5.80); Red Cell Distribution Width 13.5 % (11.0-16.0); White Blood Count 8.1 X10*3/uL (4.8-10.8)
[2025-01-04 08:31] LABS: Alanine Aminotransferase 30 U/L (0-40); Albumin Level 4.4 g/dL (3.5-5.0); Alkaline Phosphatase 87 U/L (39-117); Anion Gap 13 (12-20); Aspartate Amino Transferase 37 U/L (5-37); Bilirubin Total 1.1 mg/dL (0.0-1.0); Blood Urea Nitrogen 19 mg/dL (9-16); Calcium 9.6 mg/dL (8.4-10.2); Carbon Dioxide 30 mmol/L (22-29); Chloride 104 mmol/L (96-108); Cholesterol 151 mg/dL (<200); Estimated Glomerular Filt Rate > 60; Glucose Fasting 88 mg/dL (60-99); HDL Cholesterol 56 mg/dL (>40); LDL Cholesterol Calculated 78 mg/dL (<100); Potassium 3.6 mmol/L (3.3-5.1); Sodium 143 mmol/L (135-145); Total Protein 7.4 g/dL (6.5-8.0); Triglycerides 86 mg/dL (<150)
[2025-01-04 08:35] LABS: Prostate Specific Antigen Scr 0.75 ng/mL (<0.05-4.0)
== END 2025-01-04 06:58 | disposition home or self-care (01) ==
LOC: HO.LAB 06:57
PROVIDERS: PCP Internal Medicine; Visit Provider Internal Medicine
DX: Z00.00 Encounter for general adult medical examination without abnormal findings (principal); Z13.0 Encounter for screening for diseases of the blood and blood-forming organs and certain disorders involving the immune mechanism; Z13.220 Encounter for screening for lipoid disorders; Z13.29 Encounter for screening for other suspected endocrine disorder; Z13.6 Encounter for screening for cardiovascular disorders; Z12.5 Encounter for screening for malignant neoplasm of prostate
CPT/HCPCS: 36415; 80053; 80061; 84153; 84443; 85025

== ENCOUNTER 2025-01-11 10:45 | Outpatient (AMB) | payer MEDICARE, SELFPAY ==
--- NOTE | 2025-01-11 10:51 | MHC.PC.OV ---
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 Hurricane Tracker: Not Required per policy Accompanied by: Self / Same As Patient Allergies Penicillins Allergy (Mild, Verified 01/11/25 10:52) RASH yeast, dried [yeast] Allergy (Mild, Verified 01/11/25 10:52) CHEST CONGESTION amoxicillin [AMOXICILLIN] Allergy (Unknown, Verified 01/11/25 10:52) RASH clindamycin [CLINDAMYCIN] Allergy (Unknown, Verified 01/11/25 10:52) RASH,DIARRHEA Clindamycin HCl Allergy (Unknown, Verified 01/11/25 10:52) rash, diarrhea Medication List - Last Reconciled 01/12/25 by Blade Rm MD albuterol sulfate 90 mcg/actuation (ProAir HFA) 2 puffs PO Q6H PRN allopurinol 300 mg PO DAILY atorvastatin 40 mg PO DAILY clopidogrel 75 mg PO DAILY cyclobenzaprine 10 mg PO TID PRN 10 days fluticasone propionate 50 mcg/actuation (Allergy Relief (fluticasone)) 2 sprays intranasal DAILY hydrochlorothiazide 25 mg PO DAILY indomethacin 25 mg PO QID sildenafil 0 mg PO Tobacco use date assessed: 01/11/25 Fall risk assessment: No Falls in past year Last assessed Fall Risk: 01/11/25 Dental Screening Dental Screen Date: 01/11/25 Did you have a dental visit in the last 12 months?: Yes Did you have a dental problem in the last 6 months where you did not have access to dental care?: No Was dental information given to patient?: Patient has dentist HPI follow up with Dr Rm HPI Details HTN on Rx; doing well; compliant [facility] Medical History Cough Surgical History History of colonoscopy Family History Mother No problems noted. Father No problems noted. Social History (Updated 01/11/25 @ 10:56 by JUAN A Boyd) Housing: House Alcohol intake: current Alcohol intake frequency: a few times a week Patient Tobacco Use Status: Never used Tobacco e-Cigarette/Vaping Use: Never Used Second Hand Smoke Exposure: No service: No Current occupational status: retired Cognitive needs: No Hearing needs: No Vision needs: No Questionnaire PHQ-9 Over the last 2 weeks, how often have you been bothered by any of the following problems? 1. Little interest or pleasure in doing things: not at all 2. Feeling down, depressed, or hopeless: not at all 3. Trouble falling or staying asleep, or sleeping too much: not at all 4. Feeling tired or having little energy: not at all 5. Poor appetite or overeating: not at all 6. Feeling bad about yourself - or that you are a failure or have let yourself or your family down: not at all 7. Trouble concentrating on things, such as reading the newspaper or watching television: not at all 8. Moving or speaking so slowly that other people could have noticed. Or the opposite - being so fidgety or restless that you have been moving around a lot more than usual: not at all 9. Thoughts that you would be better off or of hurting yourself in some way: not at all Total score: 0 Depression Screening Interpretation: Negative Depression Screening Done: Yes Source: Developed by Drs. Xu Patrick, Jessica Portillo, Krzysztof Garcia and colleagues, with an educational maddi from [employer]. Thrive Questionnaire Date Thrive assessed: 01/11/25 I am a: Patient What is your living situation today?: I have a steady place to live Within the past 12 months, did the food you bought not last and you didn't have the money to get more?: Never true Within the past 12 months, did you worry whether your food would run out before you got money to buy more?: Never true Do you have trouble paying for medicines?: No Do you have trouble getting transportation to medical appointments?: No Do you have trouble paying your heating and electricity bill?: No Do you have trouble taking care of your child, family member or friend?: No Do you have trouble with day-to-day activities such as bathing, preparing meals, shopping, managing finances, etc.?: No Are you currently unemployed and looking for a job?: No Are you interested in more education?: No Please select the resources that you would like help with: None Currently or been in a relationship where the following occur: No concerns reported THRIVE Score: 0 AUDIT C Alcohol Use Questionnaire (AUDIT-C) 1. How often do you have a drink containing alcohol?: Never Total Score: 0 ZUNILDA-7 AMB Questionnaire ZUNILDA-7 Date ZUNILDA - 7 assessed: 01/11/25 Feeling nervous, anxious, or on edge: 0 = Not at all Not being able to stop or control worryin = Not at all Worrying too much about different things: 0 = Not at all Trouble relaxin = Not at all Being so restless that it is hard to sit still: 0 = Not at all Becoming easily annoyed or irritable: 0 = Not at all Feeling afraid as if something awful might happen: 0 = Not at all Total ZUNILDA-7 score (0-4 normal; 5-9 mild; 10-14 moderate; 15-21 severe): 0 Source: Developed by Drs. Xu Patrick, Jessica Portillo, Krzysztof Garcia and colleagues, with an educational maddi from [employer]. Review of Systems Const Denies chills, Denies headache(s) and Denies weight loss ENT Denies headache(s) Card Denies chest pain, Denies syncope, Denies irregular heart rhythm and Denies dyspnea Resp Denies chest congestion, Denies cough and Denies dyspnea GI Denies abdominal pain, Denies change in stool character, Denies nausea and Denies vomiting Musc Denies deformity and Denies joint swelling Neuro Denies syncope and Denies headache(s) Physical exam (Primary Care) Vital Signs: Last Vital Signs Temp 97.3 F 01/11/25 10:52 Pulse 75 01/11/25 10:52 BP 112/70 01/11/25 10:52 Pulse Ox 96 01/11/25 10:52 Oxygen Delivery Method Room Air 01/11/25 10:52 BMI result Body Mass Index 27.2 Tobacco/Smoking Status: Tobacco use Status Tobacco use date assessed 01/11/25 01/11/25 10:57 Patient Tobacco Use Status Never used Tobacco 01/11/25 10:57 e-Cigarette/Vaping Use Never Used 01/11/25 10:57 PHQ-9: PHQ-9 Score PHQ-9: Total score 0 01/11/25 10:57 Depression Screening Interpretation: Negative Thrive Assessment: Date of Thrive Assessment Date Thrive assessed 01/11/25 01/11/25 10:57 Currently or been in a relationship where the following occur: No concerns reported Const General: cooperative, comfortable, no acute distress and alert Neck Neck: Yes no lymphadenopathy Thyroid: Thyroid normal Resp Effort & Inspection: normal respiratory effort Auscultation: clear to auscultation bilaterally Percussion: percussion normal Cardio Jugular venous distension: no JVD Palpation: normal PMI Rate: regular rate Rhythm: regular rhythm Heart sounds: S1 normal heart sound present and S2 normal heart sound present GI Inspection: Yes normal to inspection Palpation (GI): No hepatosplenomegaly present Skin General skin exam: no rashes or lesions noted Extrem General: Yes no clubbing, cyanosis or edema Coding Level of Care Code Est Pt Level 3 (11571) Diagnoses Hypertension I10 Assessment & Plan Assessment & Plan (1) Hypertension: Code(s): I10 - Essential (primary) hypertension Category: Medical Plan: stable; same rx Orders: Orders Uric Acid 01/11/25 M10.9 - Gout, unspecified
[2025-01-11 10:52] VITALS: BP 112/70; PULSE 75; TEMP 36.3; O2SAT 96; BMI 27.2
== END 2025-01-11 11:40 | disposition home or self-care (01) ==
PROVIDERS: PCP Internal Medicine; Visit Provider Internal Medicine
DX: I10 Essential (primary) hypertension (principal)

== ENCOUNTER → 2025-01-11 10:45 | Outpatient (BNVA) | payer MEDICARE, SELFPAY | PROVIDERS: PCP Internal Medicine; Visit Provider Internal Medicine | DX: I10 Essential (primary) hypertension (principal) | CPT/HCPCS: 99212 ==

== ENCOUNTER 2025-07-14 09:02 | Outpatient (AMB) | payer MEDICARE, SELFPAY ==
--- NOTE | 2025-07-14 09:08 | A.OFFPC_ITS ---
Vital Signs 07/14/25 09:09 Height 5 ft 6 in Weight 164 lb 8 oz BMI 26.5 BP 136/84 Blood Pressure Location Lt brachial Position Sitting Pulse 70 Pulse Source Pulse Oximeter Temp 97.1 F Temp Source Temporal Artery Scan Pulse Oximetry (%) 95 Oxygen Delivery Method Room Air Intake Visit Reasons: PE- KIRSTIN DR RM- see comments Allergies Penicillins Allergy (Mild, Verified 07/14/25 09:18) RASH yeast, dried (yeast) Allergy (Mild, Verified 07/14/25 09:18) CHEST CONGESTION amoxicillin (AMOXICILLIN) Allergy (Unknown, Verified 07/14/25 09:18) RASH clindamycin (CLINDAMYCIN) Allergy (Unknown, Verified 07/14/25 09:18) RASH,DIARRHEA Clindamycin HCl Allergy (Unknown, Verified 07/14/25 09:18) rash, diarrhea Medication List - Last Reconciled 07/14/25 by Thomas Wade MD albuterol sulfate 90 mcg/actuation (ProAir HFA) 2 inhalations PO Q6H PRN allopurinol 300 mg PO DAILY PRN aspirin 81 mg PO DAILY atorvastatin 40 mg PO DAILY fluticasone propionate 50 mcg/actuation (Allergy Relief (fluticasone)) 2 sprays intranasal DAILY PRN hydrochlorothiazide 25 mg PO DAILY indomethacin 25 mg PO QID PRN sildenafil 100 mg PO PRN Tobacco use date assessed: 07/14/25 Fall risk assessment: No Falls in past year Last assessed Fall Risk: 07/14/25 Dental Screening Dental Screen Date: 07/14/25 Did you have a dental visit in the last 12 months?: Yes Did you have a dental problem in the last 6 months where you did not have access to dental care?: No Was dental information given to patient?: Patient has dentist HPI PE- KIRSTIN DR RM- see comments HPI Details Patient comes in today for his annual physical examination - is transferring over from Dr. Rm, who retired from the practice a few months ago States that he has been experiencing some bouts of fatigue lately but feels okay overall He denies any headaches or dizziness Denies any chest pains, no increased SOB No nausea/vomiting, no abdominal pain No change in bowel habits noted He denies any acute urinary symptoms States that he's had no acute flare up of his gout in more than a year now Needs a few of his Rx refilled He had his repeat colonoscopy last done with Dr. Robles back in 2019 - his colonoscopy came out normal then except for some diverticulosis and he was advised that he may not need another one in 10 years due to his age at the time [facility] Medical History (Updated 07/14/25 @ 11:59 by Thomas Wade MD) Overweight (BMI 25.0-29.9) Benign microscopic hematuria Erectile dysfunction Gout TIA (transient ischemic attack) Pure hypercholesterolemia Essential hypertension Surgical History (Updated 07/14/25 @ 09:47 by Thomas Wade MD) History of colonoscopy Family History Mother No problems noted. Father No problems noted. Social History Housing: House Alcohol intake: current Alcohol intake frequency: a few times a week Patient Tobacco Use Status: Never used Tobacco e-Cigarette/Vaping Use: Never Used Second Hand Smoke Exposure: No service: No Current occupational status: retired Cognitive needs: No Hearing needs: No Vision needs: No Questionnaire PHQ-9 Over the last 2 weeks, how often have you been bothered by any of the following problems? 1. Little interest or pleasure in doing things: not at all 2. Feeling down, depressed, or hopeless: not at all 3. Trouble falling or staying asleep, or sleeping too much: not at all 4. Feeling tired or having little energy: not at all 5. Poor appetite or overeating: not at all 6. Feeling bad about yourself - or that you are a failure or have let yourself or your family down: not at all 7. Trouble concentrating on things, such as reading the newspaper or watching television: not at all 8. Moving or speaking so slowly that other people could have noticed. Or the opposite - being so fidgety or restless that you have been moving around a lot more than usual: not at all 9. Thoughts that you would be better off or of hurting yourself in some way: not at all Total score: 0 Depression Screening Interpretation: Negative Depression Screening Done: Yes 06397 - PHQ-9 Billing: Yes Source: Developed by Drs. Xu Patrick, Krzysztof Daniels and colleagues, with an educational maddi from [employer]. Thrive Questionnaire Date Thrive assessed: 07/14/25 I am a: Patient What is your living situation today?: I have a steady place to live Within the past 12 months, did the food you bought not last and you didn't have the money to get more?: Never true Within the past 12 months, did you worry whether your food would run out before you got money to buy more?: Never true Do you have trouble paying for medicines?: No Do you have trouble getting transportation to medical appointments?: No Do you have trouble paying your heating and electricity bill?: No Do you have trouble taking care of your child, family member or friend?: No Do you have trouble with day-to-day activities such as bathing, preparing meals, shopping, managing finances, etc.?: No Are you currently unemployed and looking for a job?: No Are you interested in more education?: No Please select the resources that you would like help with: None Currently or been in a relationship where the following occur: No concerns reported THRIVE Score: 0 AUDIT C Alcohol Use Questionnaire (AUDIT-C) 1. How often do you have a drink containing alcohol?: 2-4 times a month 2. How many drinks containing alcohol do you have on a typical day when you are drinking?: 1 or 2 3. How often do you have six or more drinks on one occasion?: Never Total Score: 2 Score Reviewed/Action Taken: Yes ZUNILDA-7 AMB Questionnaire ZUNILDA-7 Date ZUNILDA - 7 assessed: 01/11/25 Feeling nervous, anxious, or on edge: 0 = Not at all Not being able to stop or control worryin = Not at all Worrying too much about different things: 0 = Not at all Trouble relaxin = Not at all Being so restless that it is hard to sit still: 0 = Not at all Becoming easily annoyed or irritable: 0 = Not at all Feeling afraid as if something awful might happen: 0 = Not at all Total ZUNILDA-7 score (0-4 normal; 5-9 mild; 10-14 moderate; 15-21 severe): 0 Source: Developed by Drs. Xu Patrick, Krzysztof Daniels and colleagues, with an educational maddi from [employer]. Review of Systems Const Denies chills, Reports fatigue (at times), Denies fever(s), Denies headache(s), Denies malaise and Denies weakness Eyes Denies blurry vision, Denies change in vision, Denies irritation and Denies itchy eyes ENT Denies dysphagia, Denies dizziness, Denies otalgia, Denies headache(s), Denies nasal congestion, Denies neck pain, Denies odynophagia and Denies sore throat Card Denies chest pain, Denies rapid heart rate, Denies irregular heart rhythm, De nies palpitations and Denies dyspnea Resp Denies chest congestion, Denies cough, Denies dyspnea and Denies wheezing GI Denies abdominal pain, Denies bloating, Denies constipation, Denies dysphagia, Denies heartburn, Denies diarrhea, Denies nausea, Denies odynophagia and Denies vomiting Denies hematuria, Denies difficulty urinating, Reports erectile dysfunction, Denies dysuria, Denies urinary frequency and Denies urinary urgency Musc Denies back pain, Denies arthralgias, Denies joint swelling, Denies muscle weakness and Denies neck pain Skin/Breast Denies change in pigmentation, Denies lesions, Denies rash and Denies unusual bruising Neuro Denies dizziness, Denies headache(s), Denies paresthesias and Denies weakness Endo Reports fatigue (at times) and Denies palpitations Aller/Immun Denies itchy eyes and Denies wheezing Physical exam (Primary Care) Vital Signs: Last Vital Signs Temp 97.1 F 07/14/25 09:09 Pulse 70 07/14/25 09:09 BP 136/84 07/14/25 09:09 Pulse Ox 95 07/14/25 09:09 Oxygen Delivery Method Room Air 07/14/25 09:09 BMI result Body Mass Index 26.5 Tobacco/Smoking Status: Tobacco use Status Tobacco use date assessed 07/14/25 07/14/25 09:12 Patient Tobacco Use Status Never used Tobacco 07/14/25 09:12 e-Cigarette/Vaping Use Never Used 07/14/25 09:12 PHQ-9: PHQ-9 Score PHQ-9: Total score 0 07/14/25 09:50 Depression Screening Interpretation: Negative Thrive Assessment: Date of Thrive Assessment Date Thrive assessed 07/14/25 07/14/25 09:50 Currently or been in a relationship where the following occur: No concerns reported Const General: no acute distress, alert and awake Orientation/consciousness: patient oriented x3 HENMT Head: Yes normocephalic and Yes atraumatic Ears: external ears normal, TM's normal bilaterally and EAC's normal General nose exam: No nasal discharge present Face and sinus: Yes normal facial exam and Yes sinuses nontender Teeth and gingiva: dentition normal Throat: Yes posterior oropharynx normal and Yes tonsils normal (no TP congestion) Eyes Eyelids: Yes eyelids normal Conjunctivae: conjunctivae normal Pupils: Equal, round and reactive pupils present EOM: EOMs intact bilaterally Neck Neck: Yes supple and No lymphadenopathy Thyroid: Thyroid normal Resp Auscultation: clear to auscultation bilaterally, no rales and no wheezes Cardio Rate: regular rate Rhythm: regular rhythm Heart sounds: no murmurs GI Palpation (GI): Soft to palpation, nontender and No hepatosplenomegaly present Auscultation: normal bowel sounds General: Yes no CVA tenderness Back/Spine/Pelvis Back: no CVA tenderness Thoracic/Lumbar Spine: No lumbar spinal tenderness Skin Lesions: no lesions Rashes: no rashes Neuro General: patient oriented x3, moves all extremities, no focal motor deficits and CN's II-XI intact bilaterally Cranial nerves: Yes Equal, round and reactive pupils present Cognition (Neuro): normal cognition Gait exam (Neuro): Normal gait present Extrem General: Yes no clubbing, cyanosis or edema Immunizations Tenivac (PF) 5 Lf unit-2 Lf unit/0.5 mL intramuscular syringe Performing Provider: Thomas Wade MD [facility] [place] [facility] Administered by: Ursula Weathers CMA on 07/14/25 09:40 Dose Route Admin Location Dispensed Lot Number Expiration Date [facility] Radiology Ct Technologist 0.5 mL IM Left Tricep 0.5 mL [id number] 03/16/27 70590-274-97 [employer] Total Dispensed Waste 0.5 mL 0 % VIS Given Date VIS Provided VIS Publication Date 07/14/25 Single Vaccine 21 Eligibility Eligibility Date Funding Source Not [facility] Eligible 07/14/25 Private Coding Level of Care Code Est Pt Prev Care >65y(58391) Diagnoses Annual physical exam Z00.00 Essential hypertension I10 Pure hypercholesterolemia E78.00 TIA (transient ischemic attack) G45.9 Elevated TSH R79.89 Benign microscopic hematuria R31.1 Chronic gout without tophus, unspecified cause, unspecified site [id number].[id number] Gout site: unspecified site Gout etiology: unspecified cause Chronicity: chronic Presence of tophus: without tophus Erectile dysfunction, unspecified erectile dysfunction type N52.9 Erectile dysfunction type: unspecified Overweight (BMI 25.0-29.9) E66.3 Additional Codes PHQ-9 - 41265 - PHQ-9 Billing: Yes ([id number]) Assessment & Plan Assessment & Plan (1) Annual physical exam: Code(s): Z00.00 - Encounter for general adult medical examination without abnormal findings Category: Medical Plan: He has no follow up labs done recently although his labs done back in December 2024 were all within acceptable range He had his repeat colonoscopy last done with Dr. Robles back in 2018 - his colonoscopy came out normal then except for some diverticulosis and he was advised that he may not need another one in 10 years due to his age at the time (2) Essential hypertension: Code(s): I10 - Essential (primary) hypertension Category: Medical Plan: Reinforced low sodium diet - goal is systolic BP of at least 130 to 140 mm or less Continue HCTZ 25 mg QD Patient is reminded to monitor his blood pressure regularly (3) Pure hypercholesterolemia: Code(s): E78.00 - Pure hypercholesterolemia, unspecified Category: Medical Plan: Reinforced low cholesterol diet - goal is LDL cholesterol of <70 mg/dl He is advised that his cholesterol levels were at or near goal when they were last checked in December 2024 Continue Atorvastatin 40 mg QD Will recheck his labs and fasting lipids in 4 months for follow up (4) TIA (transient ischemic attack): Code(s): G45.9 - Transient cerebral ischemic attack, unspecified Category: Medical Plan: He was admitted to [facility] back in 2020 for TIA and he's had NO recurrence of symptoms since Works up done at the time were all reportedly normal and he was advised to continue medical management and risk factor reduction/prevention Continue Aspirin 81 mg QD (5) Elevated TSH: Code(s): R79.89 - Other specified abnormal findings of blood chemistry Category: Medical Plan: He was advised that his serum TSH has been slightly elevated on the 2 separate occasions when they were last checked Will recheck his TSH and free T4 level in a few months for follow up (6) Benign microscopic hematuria: Code(s): R31.1 - Benign essential microscopic hematuria Category: Medical Plan: Work ups done with urology have so far been all normal/negative Follow up with urology as scheduled (7) Gout: Code(s): M10.9 - Gout, unspecified Category: Medical Qualifiers: Gout site: unspecified site Gout etiology: unspecified cause Chronicity: chronic Presence of tophus: without tophus Qualified Code(s): M1A.9XX0 - Chronic gout, unspecified, without tophus (tophi) Plan: Patient reports NO acute gout flare ups in more than a year now He has not had his serum uric acid level checked since 2018 - was normal at 6.2 back then Reinforced low purine diet Continue Allopurinol 300 mg QD Will recheck his serum uric acid level in 4 months for follow up (8) Erectile dysfunction: Code(s): N52.9 - Male erectile dysfunction, unspecified Category: Medical Qualifiers: Erectile dysfunction type: unspecified Qualified Code(s): N52.9 - Male erectile dysfunction, unspecified Plan: He has been taking Sildenafil 100 mg PRN over the past few years but feels that this is not really helping much Follow up with urology as scheduled (9) Overweight (BMI 25.0-29.9): Code(s): E66.3 - Overweight Category: Medical Plan: Reinforced diet/exercise as tolerated/lose weight Plan Patient is also now due for his 10 year tetanus immunization update and will be given his Td booster today - he last received Tdap in 2015 Follow up in 4 months Orders: Orders Complete Blood Count Auto Diff 4 Months Thomas Wade MD D64.9 - Anemia, unspecified Comprehensive [place]. Panel Fast 4 Months Thomas Wade MD E78.00 - Pure hypercholesterolemia, unspecified UA CC w/rflx Micro + Cult 4 Months Thomas Wade MD R30.0 - Dysuria Vitamin B12 and Folate 4 Months Thomas Wade MD E53.8 - Deficiency of other specified B group vitamins Thyroid Stimulating Hormone 4 Months Thomas Wade MD R79.89 - Other specified abnormal findings of blood chemistry Lipid Panel 4 Months Thomas Wade MD E78.00 - Pure hypercholesterolemia, unspecified Uric Acid 4 Months Thomas Wade MD M10.9 - Gout, unspecified Vitamin D 25-OH Total 4 Months Thomas Wade MD E55.9 - Vitamin D deficiency, unspecified Free T4 (Free Thyroxine) 4 Months Thomas Wade MD R79.89 - Other specified abnormal findings of blood chemistry Td Immunization Today Thomas Wade MD Z23 - Encounter for immunization Medications: Changed From indomethacin administer with food or milk 25 mg PO QID 60 caps 3RF To indomethacin administer with food or milk 25 mg PO QID PRN Blade Rm MD From albuterol sulfate 90 mcg/actuation (ProAir HFA) 2 puffs PO Q6H PRN 18 grams 8RF bronchospasm To albuterol sulfate 90 mcg/actuation (ProAir HFA) 2 inhalations PO Q6H PRN Blade Rm MD From allopurinol 300 mg PO DAILY 90 tabs 8RF To allopurinol 300 mg PO DAILY PRN Blade Rm MD
[2025-07-14 09:09] VITALS: BP 136/84; PULSE 70; TEMP 36.2; O2SAT 95; BMI 26.5
--- OUTSIDE RECORDS SUMMARY | 2025-07-14 09:54 | XMS_ITS | Encounter Summary ---
Author Organization [facility] Address [address] [place] [phone] Phone Care Team Providers Care Architectural Superintendent Name Role Phone Blade Rm MD Primary Care Provider [phone] Pcp, Unknown Primary Care Provider Unavailabl e Encounter Details Date Type Department Care Team (Late st Contact Info) Description 08/14/2021 Procedure Pass Non-Invasive Cardiology [address] [place] [address] Social History Tobacco Use Types Packs/Day Years Used Date Smoking Tobacco: Former Cigarettes Q uit: 08/12/1981 Smokeless Tobacco: Never Alcohol Use Standard Drinks/Week Comments Yes 0 (1 standard drink = 0.6 oz pur e alcohol) 2 drinks per week Sex and Gender Information Value Date Recorded Sex Assigned at Male 01/30/2020 9:32 PM EDT Legal Sex Male 9:28 PM EDT Gender Identity Male 01/30/2020 9:32 PM EDT Sexual Orientation Straight 01/30/2020 9: 32 PM EDT documented as of this encounter Plan of Treatment Not on file documented as of this encounter Visit Diagnoses Not on filedocumented in this encounter Care Teams Architectural Superintendent Relationship Specialty Start Date End Date Blade Rm MD [address] [place] [address] [place] [id number] PCP - General Internal Medicine 01/30/20 04/19/25 Pcp, Unknown PCP - General 04/20/25 documented as of this encounter Additional Source Comments The information contained in this document represents components of the legal health record. It is not the complete legal health record.[facility]
--- OUTSIDE RECORDS SUMMARY | 2025-07-14 09:54 | XMS_ITS | Clinical Summary ---
Author Organization [facility] Address [address] [employer] [address] [address] Phone Care Team Providers Care Ecd Name Role Phone Pcp, Unknown Primary Care Provider Unavailabl e Allergies Active Allergy Reactions Criticality Noted Date Comments Amoxicillin 01/30/2020 Clindamycin-Len Per-Hyalur Na Erythema Multiforme 08/12/2021 Medications aspirin 81 MG EC tabletIndicatio ns:prevention of transient ischemic attack Take 81 mg by mouth daily. Indications: prevention of transient ischemic attack Active allopurinol (ZYLOPRIM) 300 MG tabletIndicatio ns:prevention of acute gout attack Take 300 mg by mouth daily. Indications: treatment to prevent acute gout attack Active hydroCHLOROthia zide (HYDRODIURIL) 25 MG tabletIndicatio ns:hypertension Take 25 mg by mouth daily. Indications: high blood pressure Active albuterol 90 mcg/actuation inhaler Inhale 2 puffs into the lungs every 6 (six) hours as needed for wheezing. Active atorvastatin (LIPITOR) 40 MG tablet Take 1 tablet (40 mg total) by mouth nightly at bedtime. 30 tablet 1 Active acetaminophen (TYLENOL) 325 mg tablet Take 2 tablets (650 mg total) by mouth every 6 (six) hours as needed for mild pain, fever or headache. 60 tablet 1 Active fluticasone propionate (FLONASE) 50 mcg/actuation nasal spray 1 spray by Nasal route daily. Active Active Problems Problem Noted Date Diagnosed Date Numbness and tingling of left side of face 09/27 /2021 TIA (transient ischemic attack) 08/12/2021 Assessment & Plan (08/13/2021 5:18 PM EDT): CTA head and neck reassuring and MRI showed no acute ischemia, showing chronic microangiopathic changes Echocardiogram was unremarkable Continue with high-dose statin 40 mg of atorvastatin for an LDL of 130 Continue with telemetry monitoring, will need a 30-day Holter monitor on discharge for an episode of PAT found on 08/12. Neurology suspects that symptoms are either resulting from a TIA versus migraine. Monitoring patient for another 24 hours to ensure that there is no repeat visual symptoms Continue aspirin 81 mg daily, start Plavix with 300 mg dose load and then continue with 75 mg daily thereafter for a total of 21 days treatment Continue 81 mg aspirin daily thereafter Neurology follow-up on discharge Primary hypertension 08/12/2021 Assessment & Plan (08/13/2021 5:17 PM EDT): Patient with no stroke on MRI so therefore we will resume his home hydrochlorothiazide H/O: gout 08/12/2021 Assessment & Plan (08/12/2021 5:27 PM EDT): Continue home dose allopurinol. Encounters Date Type Department Care Team Description 04/20/2025 10:30 AM EDT Office Visit [facility] [address] [address] Yana Carrasquillo, SHELBY Ceruminosis, bilateral (Primary Dx) from Last 3 Months Immunizations Immunization Administration Dates Next Due Influenza High-Dose Quadriva lent Preservative Free IM 08/14/2021(Deferred: Patient Refused) Social History Tobacco Use Types Packs/Day Years Used Date Smoking Tobacco: Former Cigarettes Q uit: 08/12/1981 Smokeless Tobacco: Never Alcohol Use Standard Drinks/Week Comments Yes 0 (1 standard drink = 0.6 oz pur e alcohol) 2 drinks per week Education Answer Date Recorded Are you interested in more education? Not on radha e 03/14/2023 Are you concerned about learning? Not on file 03/14/2023 No 03/14/2023 No 03/14/2023 Digital Access Answer Date Recorded No 04/12/2023 No 04/12/2023 No 04/12/2023 Reliable internet access at home? Not on file 04/12/2023 Device with a working camera? Not on file Sex and Gender Information Value Date Recorded Sex Assigned at Male 01/30/2020 9:32 PM EDT Legal Sex Male 9:28 PM EDT Gender Identity Male 01/30/2020 9:32 PM EDT Sexual Orientation Straight 01/30/2020 9: 32 PM EDT Last Filed Vital Signs Vital Sign Reading Time Taken Comments Blood Pressure 131/83 04/20/2025 12:14 PM EDT Pulse 88 04/20/2025 12:14 PM EDT Temperature 36.9 C (98.4 F) 04/20/2025 12:14 PM EDT Respiratory Rate 17 04/20/2025 12:14 PM EDT Oxygen Saturation 96% 04/20/2025 12:14 PM EDT Inhaled Oxygen Concentration - - Weight 74.8 kg (165 lb) 08/12/2021 7:55 PM EDT Height 167.6 cm (5' 6 ) 08/12/2021 7:55 PM EDT Body Mass Index 26.63 08/12/2021 7:55 PM EDT Plan of Treatment Health Maintenance Due Date Last Done Comments Adult Td,Tdap Booster 1946 DEPRESSION SCREENING 1958 SMOKING Hx and SMOKELESS TOBACCO SCREENING 1959 HEPATITIS C SCREENING 1964 PNEUMOCOCCAL VACCINES (50+ years) (1 of 1 - PCV) 1996 RSV VACCINE (1 - 1-dose 75+ series) 2021 CREATININE LEVEL 08/13/2022 08/13/2021, , 01/30/2020 POTASSIUM LEVEL 08/13/2022 08/13/2021, 07/19, 01/30/2020 COVID-19 VACCINE ( season) 2024 08/25/2023, 11/05/2022, 09/19/2021, Additional history exists BLOOD PRESSURE 10/20/2025 04/20/2025 LIPID PANEL 08/13/2026 08/13/2021, 08/12/2021 ZOSTER VACCINES Completed 10/31/2021, 07/07/2021 HEPATITIS A VACCINES Aged Out No long er eligible based on patient's age to complete this topic HIB VACCINES Aged Out No longer eligi ble based on patient's age to complete this topic MENINGOCOCCAL VACCINES (ACWY) Aged Out No longer eligible based on patient's age to complete this topic MENINGOCOCCAL VACCINES (B) Aged Out N o longer eligible based on patient's age to complete this topic Medical Devices Not on file Procedures Procedure Name Priority Date/Time Associated Diagnosis Comments EAR CERUMEN REMOVAL Routine 04/20/2025 1 2:51 PM EDT Ceruminosis, bilateral LIPID PANEL Routine 08/13/2021 4:43 AM EDT COMPREHENSIVE METABOLIC PANEL Routine 08/13/2021 4:43 AM EDT from Last 3 Months or Most Recently Relevant to Health Maintenance Results * EAR CERUMEN REMOVAL (04/20/2025 12:51 PM EDT) Other Narrative Yana Carrasquillo CNP - 04/20/2025 12:51 PM EDT Yana Carrasquillo CNP 04/20/2025 12:53 PM Cerumen Removal Date/Time: 04/20/2025 12:51 PM Visualization: Otoscopy Cerumen in: Bilateral ears Removed with: Irrigation Patient tolerated procedure well: Yes [place] Protocol: Verbal consent obtained: Yes Written consent obtained: No Time out: Immediately prior to the procedure, a time out was called to verify that there is a signed consent form and that the correct patient, planned procedure, site and side are consistent with documentation and that necessary equipment and/or blood products are available prior to the start of the case. us Yana Carrasquillo CNP PROCEDURE/MINOR SURGICAL OR DERABLES Final Result * (ABNORMAL) Comprehensive metabolic panel (08/13/2021 4:43 AM EDT) SODIUM 139 133 - 146 mmol/L [facility] POTASSIUM 3.7 3.3 - 5.1 mmol/L [facility] CHLORIDE 101 96 - 108 mmol/L [facility] CO2 29 21 - 35 mmol/L [facility] BUN 15 6 - 19 mg/dL [facility] CREATININE 1.20 0.5 - 1.5 mg/dL [facility] GLUCOSE 84 70 - 99 mg/dL [facility] ALBUMIN 4.4 3.9 - 4.8 g/dL [facility] TOTAL PROTEIN 6.9 6.5 - 8.0 g/dL [facility] CALCIUM 9.4 8.4 - 10.3 mg/dL [facility] ALKALINE PHOSPHATASE 70 39 - 117 U/L [facility] TOTAL BILIRUBIN 0.8 0.0 - 1.2 mg/dL [facility] AST 22 0 - 37 U/L [facility] ALT 19 0 - 40 U/L [facility] GLOBULIN 2.5 1 - 4.8 g/dL [facility] EGFR 59(L) >59 mL/min/1.7 3m2 [facility] Comment:Estimated glomerular filtration rate calculated using the CKD-EPI equation. ANION GAP 13 10 - 20 mmol/L [facility] Blood 08/13/2021 4:43 AM EDT 08/13/2021 5:52 AM EDT us Ursula CHU LAB BLOOD ORDERABLES Fin al Result Performing Organization Address City/State/[facility] Co de Phone Number [facility] [address] [place] [address] * (ABNORMAL) Lipid panel (08/13/2021 4:43 AM EDT) HDL 52 mg/dL [facility] Comment: Interpretation <40 mg/dL: Low HDL cholesterol (major risk factor for CHD) Greater than or equal to 60 mg/dL: High HDL cholesterol ( negative risk factor for CHD) HDL - cholesterol is affected by a number of factors, e.g. smoking, excerise, hormones, sex and age. CHOLESTEROL 211 0 - 240 mg/dL [facility] TRIGLYCERIDES 143 30 - 160 mg/dL [facility] LDL 130(H) 50 - 129 mg/dL [facility] Comment: LDL levels in terms of risk for coronary heart disease: <100 mg/dL: Optimal 100-129 mg/dL: Near or above optimal 130-159 mg/dL: Borderline high 160-189 mg/dL: High >190 mg/dL: Very High CARDIAC RISK RATIO 4.1 3.4 - 5.0 C [facility] Blood 08/13/2021 4:43 AM EDT 08/13/2021 5:52 AM EDT us Ursula CHU LAB BLOOD ORDERABLES Fin al Result [address] [address] from Last 3 Months or Most Recently Relevant to Health Maintenance Insurance [employer] RE[employer] MEDICARE HMO REPLACEMENT MEDICARE HMO REPLACEMENT MEDICARE HMO REPLACEMENT MEDICARE HMO REPLACEMENT MEDICARE HMO REPLACEMENT MEDICARE HMO REPLACEMENT MEDICARE HMO REPLACEMENT Member Subscriber Plan / Payer (Ef fective 2018-Present) Name:Shamar Whitney Relation to Subscriber:Self Name:Shamar Whitney Payer ID:Not on file Type:Medicare Address: [place] [id number] Advance Directives For more information, please contact: [phone] (9AM - 5PM [facility], Friday-Friday) * Full Code (Latest Code Status on File) Date Activated Date Inactivated Comments 08/12/2021 6:47 PM Question Answer Comments Code Status Confirmed With: PatientFamily Care Teams Ecd Relationship Specialty Start Date End Date Pcp, Unknown PCP - General 04/20/25 Additional Source Comments The information contained in this document represents components of the legal health record. It is not the complete legal health record.[facility]
--- OUTSIDE RECORDS SUMMARY | 2025-07-14 09:54 | XMS_ITS | Encounter Summary ---
Author Organization [facility] Address [facility] [employer] [facility] [address] [place] [address] Phone Care Team Providers Care Medical Artist Name Role Phone Blade Rm MD Primary Care Provider [phone] Pcp, Unknown Primary Care Provider Unavailabl e Encounter Details Date Type Department Care Team (Late st Contact Info) Description 08/12/2021 Procedure Pass [facility] [address] [place] [address] Social History Tobacco Use Types Packs/Day Years [...] PM EDT documented as of this encounter Functional Status * Calculated C-SSRS Risk Score (Lifetime/Recent) Answer Date of Assessment Author No Risk Indicated 08/12/2021 7:05 PM EDT Eleni Landa RN * [place] Suicide Severity Rating Scale (Screener/Recent Self-Report) Question Answer Date of Assessment Author 1. Wish to be (Past 1 Month) No 021 7:05 PM EDT Elein Landa RN 2. Non-Specific Active Suici ad Thoughts (Past 1 Month) No 08/12/2021 7:05 PM EDT Eleni Landa, RN 6. Suicidal Behavior (Lifetime) No 1 7:05 PM EDT Eleni Landa RN documented as of this encounter Plan of Treatment Not on file documented as of this encounter Visit Diagnoses Not on filedocumented in this encounter Care Teams Medical Artist Relationship Specialty Start Date End Date Blade Rm MD [address] [place] [address] [place] [address] PCP - General Internal Medicine 01/30/20 04/19/25 Pcp, Unknown PCP - General 04/20/25 documented as of this encounter Additional Source Comments The information contained in this document represents components of the legal health record. It is not the complete legal health record.[facility]
--- OUTSIDE RECORDS SUMMARY | 2025-07-14 09:54 | XMS_ITS | Encounter Summary ---
Author Organization [facility] Address [facility] [employer] [facility] [address] [place] [phone] Phone Care Team Providers Care Transit Survey Worker Name Role Phone Blade Rm MD Primary Care Provider [phone] Pcp, Unknown Primary Care Provider Unavailabl e Encounter Details Date Type Department Care Team (Late st Contact Info) Description 08/12/2021 Procedure Pass [facility], [facility] Scan - [facility] [address] [place] [address] Social History Tobacco Use Types Packs/Day Years [...] 7:05 PM EDT Eleni Landa RN * [place] Suicide Severity Rating Scale (Screener/Recent Self-Report) Question Answer Date of Assessment Author 1. Wish to be (Past 1 Month) No 021 7:05 PM EDT Eleni Landa RN 2. Non-Specific Active Suici ad Thoughts (Past 1 Month) No 08/12/2021 7:05 PM EDT Eleni Landa RN 6. Suicidal Behavior (Lifetime) No 7:05 PM EDT Eleni Landa RN documented as of this encounter Plan of Treatment Not on file documented as of this encounter Visit Diagnoses Not on filedocumented in this encounter Care Teams Transit Survey Worker Relationship Specialty Start Date End Date Blade Rm MD [address] [place] [address] [place] [address] PCP - General Internal Medicine 01/30/20 04/19/25 Pcp, Unknown PCP - General 04/20/25 documented as of this encounter Additional Source Comments The information contained in this document represents components of the legal health record. It is not the complete legal health record.[facility]
--- OUTSIDE RECORDS SUMMARY | 2025-07-14 09:54 | XMS_ITS | Encounter Summary ---
Author Organization [facility] Address [facility] [address] [facility] [address] [place] [address] Phone Care Team Providers Care Museum Assistant Name Role Phone Blade Rm MD Primary Care Provider [phone] Pcp, Unknown Primary Care Provider Unavailabl e Encounter Details Date Type Department Care Team (Late st Contact Info) Description 08/12/2021 Procedure Pass [facility], [address] [address] Social History Tobacco Use Types Packs/Day Years [...] 7:05 PM EDT Eleni Landa RN * [place] Suicide Severity Rating Scale (Screener/Recent Self-Report) Question [...] on filedocumented in this encounter Care Teams Museum Assistant Relationship Specialty Start Date End Date Blade Rm MD [address] [place] [address] Dr [place]le [address] [place] [id number] PCP - General Internal Medicine 01/30/20 04/19/25 Pcp, Unknown PCP - General 04/20/25 documented as of this encounter Additional Source Comments The information contained in this document represents components of the legal health record. It is not the complete legal health record.[facility]
== END 2025-07-14 09:47 | disposition home or self-care (01) ==
PROVIDERS: PCP Internal Medicine; Visit Provider Internal Medicine
DX: Z00.00 Encounter for general adult medical examination without abnormal findings (principal); I10 Essential (primary) hypertension; E78.00 Pure hypercholesterolemia, unspecified; G45.9 Transient cerebral ischemic attack, unspecified; R79.89 Other specified abnormal findings of blood chemistry; R31.1 Benign essential microscopic hematuria; M1A.9XX0 Chronic gout, unspecified, without tophus (tophi); N52.9 Male erectile dysfunction, unspecified; E66.3 Overweight; Z23 Encounter for immunization

== ENCOUNTER → 2025-07-14 09:02 | Outpatient (BNVA) | payer MEDICARE, SELFPAY | PROVIDERS: PCP Internal Medicine; Visit Provider Internal Medicine | DX: Z00.00 Encounter for general adult medical examination without abnormal findings (principal); E78.00 Pure hypercholesterolemia, unspecified; I10 Essential (primary) hypertension; R79.89 Other specified abnormal findings of blood chemistry; R31.1 Benign essential microscopic hematuria; M1A.9XX0 Chronic gout, unspecified, without tophus (tophi); N52.9 Male erectile dysfunction, unspecified; E66.3 Overweight; Z68.26 Body mass index [BMI] 26.0-26.9, adult; Z86.73 Personal history of transient ischemic attack (TIA), and cerebral infarction without residual deficits | CPT/HCPCS: 90471; 90714; 96127; 99397 ==